=== PATIENT | female | born 1995 | race Caucasian/White ===

== ENCOUNTER 2020-11-22 06:05 | Inpatient (IN) ==
[2020-11-22] MEDS ORDERED: OXYTOCIN 30 UNITS/500 ML BAG IV PRN ×3 (08:40→23:07)
[2020-11-22] MEDS ORDERED: miSOPROStoL 50 MCG TAB PO ONE (09:00)
[2020-11-22 09:26] LABS: Hematocrit (blood only) 36.1 % (37-47); Mean Corpuscular Hemoglobin 29.1 pg (25-34); Mean Corpuscular Hgb Conc 33.2 g/dL (32-36); Mean Corpuscular Volume 87.6 fL (80-100); Mean Platelet Volume 9.1 fL (7.4-10.4); Platelet Count 254 K/uL (130-400); RDW Coefficient of Variation 15.2 % (11.5-14.5); RDW Standard Deviation 48.8 fL (36.4-46.3); Red Blood Count 4.12 M/uL (4.2-5.4)
[2020-11-22] MEDS ORDERED: DINOPROSTONE 10 MG INSERT PV ONE (12:45)
[2020-11-22] MEDS: LACTATED RINGER'S 1,000 ML IV PRN ×2 (12:50→21:27)
[2020-11-22 14:32] LABS: Rubella IgG Antibody Immune (Immune)
[2020-11-22 14:33] LABS: Hepatitis B Surf Ag Rflx Conf Neg (Neg)
[2020-11-22 15:01] LABS: Hepatitis C IgG 13Yrs+Old_Rflx Neg (Neg)
[2020-11-22] MEDS ORDERED: BUTORPHANOL TARTRATE 1 MG/ML VIAL ONE (18:47)
[2020-11-22] MEDS ORDERED: BUPIVACAINE 0.25% 30 ML VIAL ONE (20:32)
[2020-11-22] MEDS ORDERED: SODIUM CHLORIDE 0.9% INJ 10 ML VIAL ONE (20:32)
[2020-11-22] MEDS ORDERED: ePHEDrine sulfate 50 MG/ML AMP ONE (20:32)
[2020-11-22] MEDS ORDERED: fentaNYL citrate 100 MCG/2 ML VIAL ONE (20:33)
[2020-11-22] MEDS ORDERED: fentaNYL 2MCG/ML ROPIVACAINE 1.25MG/ML 100 ML BAG EPI ONE (20:33)
--- NOTE | 2020-11-22 21:18 | Anesthesiology Consultation ---
Date of Service November 22, 2020 Assessment & Plan Chart Review Chart Review: Acceptable Risk for Labor Epidural Consults Requested none History Height/Weight Height: 4 ft 7.5 in Weight: 61.518 kg Allergies Allergy/AdvReac Type Severity Reaction Status Date / Time No Known Allergies Allergy Unverified 02/04/20 11:26 Medications Home Medications Medication Instructions Recorded Confirmed Last Taken vit #[id number] cap PO 11/22/20 11/22/20 06:00 Active Medications Generic Name Dose Route Start Last Admin Trade Name Freq PRN Reason Stop Dose Admin Lactated Ringer's 1,000 mls @ 125 mls/hr 11/22/20 08:40 11/22/20 18:30 Lr IV 11/24/20 08:39 125 mls/hr .Q8H PRN Infusion L&D Protocol Protocol Past Medical History Medical History No known health problems Past Surgical History Surgical History No history of previous surgery Social History Smoking Status: Never smoker Hx Alcohol Use: No Hx Substance Use: No Physical Exam Vital Signs Last Vital Signs Temp 36.9 C 11/22/20 19:09 Pulse 97 H 11/22/20 21:14 Resp 18 11/22/20 19:09 BP 121/58 L 11/22/20 21:14 Pulse Ox 94 11/22/20 21:12 Testing Laboratory Results 11/22/20 09:17 Blood Type O Positive 11/22/20 09:17
[2020-11-22] MEDS ORDERED: ePHEDrine sulfate 50 MG/ML AMP IV PRN (21:23)
[2020-11-22] MEDS ORDERED: NALOXONE HCL 0.4 MG/1 ML VIAL/CARP IV PRN (21:23)
[2020-11-22] MEDS ORDERED: NALOXONE HCL 1 MG in SODIUM CHLORIDE 0.9% 1000ML 1,000 ML IV PRN (21:23)
[2020-11-22] MEDS ORDERED: fentaNYL 2MCG/ML ROPIVACAINE 1.25MG/ML 100 ML BAG EPI PRN (21:23)
[2020-11-22] MEDS ORDERED: diphenhydrAMINE 50 MG/ML VIAL IV PRN (21:23)
[2020-11-22] MEDS ORDERED: BENZOCAINE 20% AER SPR 82.5 GM CAN EXT PRN (23:07)
[2020-11-22] MEDS ORDERED: SUPERCREAM 0.870% 15 GM JAR EXT PRN (23:07)
[2020-11-22] MEDS ORDERED: oxyCODONE/ACETAMINOPHEN 5mg/325mg TAB PO PRN (23:07)
[2020-11-22] MEDS ORDERED: HYDROCORTISONE ACETATE 25 MG SUPP PR PRN (23:07)
[2020-11-22] MEDS ORDERED: ACETAMINOPHEN W/CODEINE #3 1 TAB PO PRN (23:07)
[2020-11-22] MEDS ORDERED: DIPHTHERIA/TETANUS/PERTUSSIS 0.5 ML SYR/VIAL IM ONE (23:07)
[2020-11-22] MEDS ORDERED: bisacodyL 10 MG SUPP PR PRN (23:07)
[2020-11-22] MEDS ORDERED: ACETAMINOPHEN 325 MG TAB PO PRN (23:07)
--- NOTE | 2020-11-23 00:18 | Delivery Summary ---
DATE OF OPERATION: 11/22/2020 She is a 3, para 3, blood type is O positive, group B strep negative. Her due date is 11/19/2020. She came in for what she thought was ruptured membranes. We did some tests, could not confirm it. She was having contractions. She had a little bit of bloody discharge and we decided to induce her. We used a Cervidil tape. She began to have good contractions with the Cervidil tape. Received a dose of Stadol. When she was about 5-6 cm, she requested and received epidural anesthesia from which she obtained good pain relief. She then went to full dilatation, pushed out a live female infant via direct occiput anterior position over an intact perineum. There was a cord around the neck and the body x1. I did not reduce it prior to delivery, but just delivered the body alongside of it. Baby was slightly floppy at , so then I stripped some of the cord, clamped, and cut it, and gave it to the nurses; seemed to respond quite rapidly. I also suctioned through the mouth and the nose before the delivery of the body. Then with IV Pitocin running, the placenta was removed intact. Uterus contracted nicely. Bleeding was minimal. Inspection of the perineum revealed a first-degree laceration at 6 o'clock, it was repaired anatomically. A deep suture was used to approximate the bulbocavernosus muscle. The vaginal mucosa was approximated out and to beyond the hymenal ring with a 2-0 Vicryl and the perineal edges were approximated with a running subcuticular Vicryl. Following this, vag exam revealed no hematoma formation or sponges in the vagina. Estimated blood loss was 100 mL. Apgars will be deferred to the nurses. I attest to the content of the Intraoperative Record and any orders documented therein. Any exception s are noted below.
--- NOTE | 2020-11-23 00:22 | Anesthesia Procedure Note ---
Date of Service November 23, 2020 Anesthesia Post Epidural Note Vital Signs Vital Signs: Temp Pulse Resp BP Pulse Ox 36.9 C 82 18 104/56 L 91 11/22/20 19:09 11/23/20 00:19 11/22/20 23:41 11/23/20 00:19 11/22/20 23:22 Pain Intensity Abdomen: Pain Intensity: 2 Notes Mental Status: alert / awake / arousable Nausea / Vomiting: adequately controlled Pain: adequately controlled Airway Patency, RR, SpO2: stable & adequate BP & HR: stable & adequate Hydration State: stable & adequate Neuraxial Anesthesia: was administered and sensory block is resolving Anesthetic Complications: no major complications apparent and Pt Satisfied with anesthetic care Epidural: Removed without complications and With tip intact
[2020-11-23] MEDS: IBUPROFEN 600 MG TAB PO PRN ×3 (00:29→17:58)
[2020-11-23 06:28] LABS: Hematocrit (blood only) 35.8 % (37-47); Mean Corpuscular Hemoglobin 29.2 pg (25-34); Mean Corpuscular Hgb Conc 33.5 g/dL (32-36); Mean Corpuscular Volume 87.1 fL (80-100); Mean Platelet Volume 9.8 fL (7.4-10.4); Platelet Count 251 K/uL (130-400); RDW Coefficient of Variation 15.5 % (11.5-14.5); RDW Standard Deviation 48.5 fL (36.4-46.3); Red Blood Count 4.11 M/uL (4.2-5.4); White Blood Count 15.18 K/uL (4.8-10.8)
[2020-11-23] MEDS: PRENATAL VITAMIN 1 TAB PO SCH (08:08)
[2020-11-23] MEDS: DOCUSATE SODIUM 100 MG CAP PO SCH ×2 (08:08→19:34)
--- NOTE | 2020-11-23 10:11 | Obstetrical Progress Note ---
Date of Service November 23, 2020 Assessment & Plan Admission and Anticipated Discharge Date Admission Date: November 22, 2020 Physical Exam Physical Exam: abdomen soft and non tender no calf tenderness ambulating well vaginal bleeding scant hgb 12.0 Results & Data ([facility]) Vital Signs (Past 12 Hours) Vital Signs Temp Pulse Pulse Resp BP BP Pulse Ox 11/23/20 07:50 36.8 C 84 18 91/53 L 98 11/23/20 04:35 36.6 C 67 18 98/59 L 11/23/20 02:00 36.8 C 88 18 102/62 11/23/20 01:11 80 18 103/57 L 11/23/20 00:56 84 18 99/60 L 11/23/20 00:41 86 103/61 11/23/20 00:26 76 18 102/59 L 11/23/20 00:19 82 104/56 L 11/23/20 00:11 18 11/22/20 23:56 36.9 C 77 18 93/51 L 11/22/20 23:45 85 91/57 L 11/22/20 23:41 176 H 18 83/54 L 11/22/20 23:34 93 H 92/52 L 11/22/20 23:22 100 H 91 11/22/20 23:17 92 H 94 11/22/20 23:12 90 89 L 11/22/20 23:11 88 18 113/55 L 11/22/20 23:07 93 H 89 L 11/22/20 23:06 97 H 89 L 11/22/20 23:02 93 H 85 L 11/22/20 23:01 88 118/59 L 11/22/20 22:57 101 H 90 11/22/20 22:55 18 11/22/20 22:52 94 H 88 L 11/22/20 22:47 92 H 88 L 11/22/20 22:46 123 H 89 L 11/22/20 22:43 92 H 126/67 11/22/20 22:42 92 H 93 11/22/20 22:37 104 H 97 11/22/20 22:35 90 89 L 11/22/20 22:32 102 H 95 11/22/20 22:30 18 11/22/20 22:28 104 H 122/88 11/22/20 22:27 104 H 93 11/22/20 22:22 78 97 11/22/20 22:17 77 97 11/22/20 22:13 82 115/75 11/22/20 22:12 80 95
[2020-11-23] MEDS ORDERED: bisacodyL 5 MG TABEC PO SCH (20:00)
[2020-11-24] MEDS: IBUPROFEN 600 MG TAB PO PRN (05:42)
[2020-11-24 06:39] LABS: Hematocrit (blood only) 35.8 % (37-47)
[2020-11-24] MEDS: DOCUSATE SODIUM 100 MG CAP PO SCH (09:08)
[2020-11-24] MEDS: PRENATAL VITAMIN 1 TAB PO SCH (09:08)
--- NOTE | 2020-11-24 09:14 | Obstetrical Progress Note ---
Date of Service November 24, 2020 Assessment & Plan Admission and Anticipated Discharge Date Admission Date: November 22, 2020 Physical Exam Physical Exam: abdomen soft and non tender no calf tenderness ambulating well vaginal bleeding scant hgb 12.0 Results & Data ([facility]) Vital Signs (Past 12 Hours) Vital Signs Temp Pulse Resp BP Pulse Ox 11/23/20 23:45 36.7 C 84 16 98/59 L 97
== END 2020-11-24 14:40 | disposition home or self-care (01) | DRG 807 ==
LOC: OPB 06:05 → 4S1 06:09 → 4N 11-23 02:30